=== PATIENT | male | born 1955 | race Two or more races ===

== ENCOUNTER 2019-02-15 21:07 | Inpatient (IN) | payer MEDICARE, OTHER ==
[~2019-02-15] VITALS: Ht 157.5 cm; Wt 59.4 kg
[2019-02-15] MEDS ORDERED: CEPHALEXIN500 MG ORAL (21:23)
[2019-02-15] MEDS ORDERED: ATORVASTATIN CA20 MG ORAL (21:23)
--- NOTE | 2019-02-15 21:35 | NUR ---
ED Nurse Note: Recieved pt from home, here with c/o bilat ankle / leg pain with swelling and painful rash for about 1 month, pt has radh to bilat ankle areas, appears to be like psoriasis or echyzema which pt has scratched to sores, redness and mild drainage noted, pt c/o pain at 10/10 and severe itching, pt denies any other discomforts, denies fevers, nausea or vomiting and no cp or sob, pt speaks mostly urdu, son is at bedside to assist with translation, will resume care as ordered and closely monitor.
[2019-02-15] MEDS ORDERED: Vancomycin 1 GM in NS 275 ML IV ONE (21:45)
[2019-02-15] MEDS ORDERED: Piperacillin/Tazobactam 3.375 GM in NS 110 ML IVPB ONE (21:45)
--- NOTE | 2019-02-15 22:02 | Emergency Room Report ---
History of Present Illness General Chief Complaint: Skin Rash/Abscess Source: Patient Present Illness HPI 64-year-old male history of hypertension, hyperlipidemia presents with bilateral foot pain, drainage, patient reports that over the past 10 days it has acutely worsened, with subjective fevers and chills, he was taking Keflex as an outpatient, no aggravating or relieving factors severity is severe, constant, patient has pain now at baseline. Patient presents for eval Allergies: Coded Allergies: No Known Allergies (Unverified , 02/15/19) Patient History Past Medical History: see triage record Reviewed Nursing Documentation: PMH: Agreed; PSxH: Agreed Nursing Documentation-PMH Past Medical History: No History, Except For Review of Systems All Other Systems: negative except mentioned in HPI Physical Exam Vital Signs Date Time Temp Pulse Resp B/P (MAP) Pulse Ox O2 Delivery O2 Flow Rate FiO2 02/15/19 21:16 98.2 85 22 159/79 (105) 98 Room Air Sp02 EP Interpretation: reviewed, normal General Appearance: well appearing, no apparent distress, alert Head: normocephalic, atraumatic Eyes: bilateral eye PERRL, bilateral eye EOMI ENT: uvula midline, moist mucus membranes Neck: supple, thyroid normal, supple/symm/no masses Respiratory: lungs clear, no respiratory distress, no retraction, no accessory muscle use Cardiovascular #1: normal peripheral pulses, regular rate, rhythm, no edema, no gallop, no murmur Gastrointestinal: non tender, soft, no guarding, no rebound Musculoskeletal: normal inspection Neurologic: alert, oriented x3 Psychiatric: mood/affect normal Skin: other - bilateral foot, erythema presents with breakdown of skin, 2+ PT DP, Medical Decision Making Diagnostic Impression: Primary Impression: Cellulitis of foot, left Additional Impression: Cellulitis of foot, right ER Course 64-year-old male presents with bilateral cellulitis, differential diagnosis includes autoimmune disease skin cellulitis, abscess, Broad-spectrum antibiotic started Labs show no acute abnormalities, patient will be admitted for wound care, IV antibiotics Patient admitted to Dr. Dozier Laboratory Tests Test 02/15/19 21:40 White Blood Count 8.1 K/UL (4.8-10.8) Red Blood Count 4.48 M/UL (4.70-6.10) L Hemoglobin 13.7 G/DL (14.2-18.0) L Hematocrit 40.3 % (42.0-52.0) L Mean Corpuscular Volume 90 FL (80-99) Mean Corpuscular Hemoglobin 30.6 PG (27.0-31.0) Mean Corpuscular Hemoglobin Concent 33.9 G/DL (32.0-36.0) Red Cell Distribution Width 13.0 % (11.6-14.8) Platelet Count 187 K/UL (150-450) Mean Platelet Volume 7.2 FL (6.5-10.1) Neutrophils (%) (Auto) 52.2 % (45.0-75.0) Lymphocytes (%) (Auto) 24.2 % (20.0-45.0) Monocytes (%) (Auto) 10.9 % (1.0-10.0) H Eosinophils (%) (Auto) 11.8 % (0.0-3.0) H Basophils (%) (Auto) 0.9 % (0.0-2.0) Erythrocyte Sedimentation Rate 10 MM/HR (0-20) Prothrombin Time 10.4 SEC (9.30-11.50) Prothrombin Time INR 1.0 (0.9-1.1) PTT 27 SEC (23-33) Sodium Level 144 MMOL/L (136-145) Potassium Level 4.1 MMOL/L (3.5-5.1) Chloride Level 108 MMOL/L (98-107) H Carbon Dioxide Level 28 MMOL/L (21-32) Anion Gap 8 mmol/L (5-15) Blood Urea Nitrogen 15 mg/dL (7-18) Creatinine 1.0 MG/DL (0.55-1.30) Estimate Glomerular Filtration Rate > 60 mL/min (>60) Glucose Level 156 MG/DL (74-106) H Lactic Acid Level 0.70 mmol/L (0.4-2.0) Calcium Level 8.8 MG/DL (8.5-10.1) Phosphorus Level 3.3 MG/DL (2.5-4.9) Magnesium Level 2.0 MG/DL (1.8-2.4) Total Bilirubin 0.3 MG/DL (0.2-1.0) Aspartate Amino Transferase (AST) 27 U/L (15-37) Alanine Aminotransferase (ALT) 54 U/L (12-78) Alkaline Phosphatase 127 U/L (46-116) H Total Creatine Kinase 148 U/L (26-308) Creatine Kinase MB 0.9 NG/ML (0.0-3.6) Creatine Kinase MB Relative Index 0.6 Troponin I 0.000 ng/mL (0.000-0.056) C-Reactive Protein, Quantitative < 0.4 mg/dL (0.00-0.90) Pro-B-Type Natriuretic Peptide 32 pg/mL (0-125) Total Protein 6.8 G/DL (6.4-8.2) Albumin 3.5 G/DL (3.4-5.0) Globulin 3.3 g/dL Albumin/Globulin Ratio 1.1 (1.0-2.7) Lipase 282 U/L (73-393) EKG Diagnostic Results EKG Time: 21:50 EP Interpretation: NSR, rate 76, QTc 432, no acute ST elevations, normal axis Rhythm Strip Diag. Results Rhythm Strip Time: 22:02 EP Interpretation: yes Rate: 84 Rhythm: NSR, no PVC's, no ectopy Other X-Ray Diagnostic Results Other X-Ray Diagnostic Results #1: X-Ray ordered: Left Foot XR Complete # of Views/Limited Vs Complete: 3 View Indication: Pain EP Interpretation: Yes Interpretation: no dislocation, no fractures Impression: No acute disease Electronically Signed by: Alvin Hardin MD Other X-Ray Diagnostic Results #2: X-Ray ordered: Right Foot XR complete # of Views/Limited Vs Complete: 3 View Indication: Pain EP Interpretation: Yes Interpretation: no dislocation, no fractures Impression: No acute disease Electronically Signed by: Alvin Hardin MD Last Vital Signs Date Time Temp Pulse Resp B/P (MAP) Pulse Ox O2 Delivery O2 Flow Rate FiO2 02/15/19 21:16 98.2 85 22 159/79 (105) 98 Room Air Disposition: ADMITTED INPATIENT Condition: Alvin Castillo MD Feb 15, 2019 22:02
[2019-02-15] MEDS ORDERED: fentaNYL 100 mcg/2 mL IV ONE (22:15)
[2019-02-15] MEDS ORDERED: Morphine Sulfate 4mg/ml Inj (IV USE ONLY) IVP ONE (22:15)
[2019-02-15 22:28] LABS: BASOPHILS % (AUTO) 0.9 % (0.0-2.0); EOSINOPHILS % (AUTO) 11.8 % (0.0-3.0); HEMATOCRIT 40.3 % (42.0-52.0); HEMOGLOBIN 13.7 G/DL (14.2-18.0); LYMPHOCYTES % (AUTO) 24.2 % (20.0-45.0); MEAN CORPUSCULAR VOLUME 90 FL (80-99); MONOCYTES % (AUTO) 10.9 % (1.0-10.0); NEUTROPHILS % (AUTO) 52.2 % (45.0-75.0); PLATELET COUNT 187 K/UL (150-450); RED BLOOD COUNT 4.48 M/UL (4.70-6.10); WHITE BLOOD COUNT 8.1 K/UL (4.8-10.8)
[2019-02-15 22:30] VITALS: BP 148/81
[2019-02-15 22:43] LABS: ANION GAP 8 mmol/L (5-15); BLOOD UREA NITROGEN 15 mg/dL (7-18); CALCIUM 8.8 MG/DL (8.5-10.1); CARBON DIOXIDE 28 MMOL/L (21-32); CHLORIDE 108 MMOL/L (98-107); POTASSIUM 4.1 MMOL/L (3.5-5.1); SODIUM 144 MMOL/L (136-145)
[2019-02-15 23:00] LABS: ALANINE AMINOTRANSFERASE 54 U/L (12-78); ALBUMIN 3.5 G/DL (3.4-5.0); ALBUMIN/GLOBULIN RATIO 1.1 (1.0-2.7); ALKALINE PHOSPHATASE 127 U/L (46-116); ASPARTATE AMINO TRANSFERASE 27 U/L (15-37); BILIRUBIN,TOTAL 0.3 MG/DL (0.2-1.0); CKMB 0.9 NG/ML (0.0-3.6); CREATINE KINASE 148 U/L (26-308); PHOSPHORUS 3.3 MG/DL (2.5-4.9)
--- NOTE | 2019-02-15 23:00 | NUR ---
ED Nurse Note: Pt resting quietly in bed, awake and alert, asking for pain meds, MD informed, will medicate pt as ordered and continue to closely montior. Pt given IV antibiotics, tolerating well, no s/s of adverse reaction noted, willprepare for hospital admission.
--- NOTE | 2019-02-16 00:10 | NUR ---
ED Nurse Note: Pt has room for admission, pt is in bed awake and alert, meds given for pain effective, pt states no pain, iv site intact and patent, belongings with pt and list completed, no home meds, pt son is aware of admisison, report called to PATO Lazcano, pt being taken to unit via gurney with er-tech, nad noted during pt transport.
[2019-02-16 00:12] LABS: APPEARANCE,URINE CLEAR; BILIRUBIN, URINE NEGATIVE (NEGATIVE); COLOR,URINE PALE YELLOW; GLUCOSE, URINE (UA) NEGATIVE (NEGATIVE); KETONES,URINE NEGATIVE (NEGATIVE); LEUKOCYTE ESTERASE ,URINE NEGATIVE (NEGATIVE); NITRITE,URINE NEGATIVE (NEGATIVE); PH,URINE 6 (4.5-8.0); PROTEIN,URINE NEGATIVE (NEGATIVE); UROBILINOGEN,URINE NORMAL MG/DL (0.0-1.0)
--- NOTE | 2019-02-16 02:00 | NUR ---
NURSES NOTES: Received patient from ER at apprx 0030. No outward s/s of distress. Breathing pattern is even and unlabored on room air. Patient is french speaking. Slot Floorperson line used to ask questions and receive appropriate answers. Patient is alert and oriented x4. VS within normal limits. Iv (R) AC is intact. No current order for fluids. Cellulitis/ redness of the R and L foot and swelling in the R foot noted. Patient denies pain at this time. Dr Dozier called for admission orders. Received dvt prophylaxis order, tylenol, and NPO order. Dr. Dozier stated he would call back in the morning for further admission orders. Patient oriented to room. Call light within reach. Bed at lowest level. Pt will continue to be monitored.
[2019-02-16 04:00] VITALS: BP 111/61
--- NOTE | 2019-02-16 05:12 | NUR ---
NURSES NOTE: Pt has remained stable through out NOC shift. VS wnl. No s/s of distress. Non labored breathing pattern noted.
[2019-02-16] MEDS ORDERED: Miralax 17gm pkt ORAL PRN (06:15)
--- NOTE | 2019-02-16 06:48 | NUR ---
NURSES NOTES: DR Dozier called and added to admission orders. Orders entered and processed. [facility] on 02/17.
--- NOTE | 2019-02-16 07:41 | NUR ---
HAND OFF: Report given to Bhupinder. Pt in stable condition.
--- NOTE | 2019-02-16 07:42 | NUR ---
NURSE NOTES: Received patient awake alert and oriented, sitting up comfortably in bed. IV at left antecubital, 20 gauge, saline lock. Bed at lowest level with 2 side rails up. Call light within reach. In no apparent distress at this time. Will continue to monitor.
[2019-02-16 08:00] VITALS: BP 127/77
[2019-02-16] MEDS: Piperacillin/Tazobactam 3.375 GM in NS 110 ML IVPB SCH ×2 (08:32→16:20)
[2019-02-16] MEDS: Heparin 5000 units/ml inj SUBQ SCH ×2 (09:19→20:40)
--- NOTE | 2019-02-16 11:18 | Diagnostic Imaging Report ---
Indication: Foot Pain Comparison: None Findings: 3 views of the right foot were obtained. No acute fractures, malalignment, erosions or periostitis are identified. Bones are osteopenic. Generalized soft tissue swelling noted nonspecific. Vascular calcifications are fairly extensive within the posterior tibial and dorsalis pedis arteries. Impression: No acute findings.
--- NOTE | 2019-02-16 11:18 | Diagnostic Imaging Report ---
Indication: Cough Comparison: None A single view chest radiograph was obtained. Findings: Cardiomediastinal appearance is within normal limits for age. The lungs are clear. Pulmonary vascularity is appropriate. The diaphragmatic contour is smooth and costophrenic angles are sharp. No pleural effusions are identified. The bones are unremarkable. Impression: No acute findings
--- NOTE | 2019-02-16 11:18 | Diagnostic Imaging Report ---
Indication: Foot pain Comparison: None Findings: 3 views of the left foot were obtained. No acute fractures, malalignment, erosions or periostitis are identified. Vascular calcification noted. Soft tissues are unremarkable. Impression: No acute findings
[2019-02-16 12:00] VITALS: BP 104/65
[2019-02-16] MEDS: Vancomycin 500mg/D5W 110ml IVPB SCH ×4 (12:44→23:43)
--- NOTE | 2019-02-16 15:42 | NUR ---
CASE MANAGEMENT: INITIAL REVIEW 64 YR OLD MALE FROM HOME CC: SKIN RASH SI: LEFT/ RIGHT FOOT CELLULITIS 98.2 85 22 159/79 98% ON RA IS: IVF NS BOLUS X1 IV VANCOMYCIN X1 IV ZOSYN X1 IV FENTANYL X1 IV MORPHINE SULFATE X1 XRAY L/R FOOT CXR CHEST : 3E MED SURG UNIT DCP: HOME WHEN MEDICALLY CLEARED PLAN: WOUND CULTURES PENDING
[2019-02-16 16:00] VITALS: BP 117/72
[2019-02-16] MEDS: NovoLOG Insulin Flexpen SUBQ SCH ×2 (17:39→20:42)
--- NOTE | 2019-02-16 19:25 | NUR ---
HAND-OFF: Report given to PATO La.
--- NOTE | 2019-02-16 22:30 | History and Physical Report ---
DATE OF ADMISSION: 02/15/2019 REASON FOR CONSULT: The patient is a 64-year-old man admitted with bilateral cellulitis of the legs. HISTORY OF PRESENT ILLNESS: The patient states he has had leg lesions for about 45 days. He has recently received Keflex from an outpatient clinic. No history of other chronic illnesses, although, he has history of hyperlipidemia. He states he is prediabetic. MEDICATIONS: Atorvastatin 20 mg daily and Keflex 500 mg 4 times a day. ALLERGIES: None known. HABITS: He is a nonsmoker. Former moderate alcohol, 4 to 5 beers a day, now occasional. SOCIAL HISTORY: He is retired. Worked apparently in the [employer] industry. SYSTEM REVIEW: HEAD, EYES, EARS, NOSE, AND THROAT: Vision and hearing is good. ENDOCRINE: No diabetes, but he has had some pre-diabetes. No thyroid disease. PULMONARY: No asthma or TB. CARDIAC: No angina or myocardial infarction. GASTROINTESTINAL: No GI bleeding, ulcers, or abdominal pain. GENITOURINARY: No dysuria or hematuria or kidney stones. NEUROLOGIC: No CVA, syncope, or seizures. PHYSICAL EXAMINATION: GENERAL: The patient is alert and well-developed man, in no acute distress. VITAL SIGNS: Temperature 98.1, pulse 73, respirations 21, and blood pressure 104/65. HEENT: Sclerae are nonicteric. Ocular motion is intact in all directions. Oral mucosa moist. NECK: No adenopathy or thyroid enlargement. LUNGS: Clear. HEART: Regular rhythm. No murmur. ABDOMEN: Soft without organomegaly or masses. EXTREMITIES: No edema. There is some moderate severe cellulitis in both legs with erythema and some denuded skin. There are some small papules in the upper legs and trunk. NEUROLOGIC: Alert and oriented. Cranial nerves are intact. PERTINENT LABORATORY DATA: White count 8.1 and hemoglobin 13.7. Electrolytes normal. Glucose 156. IMPRESSION: 1. Cellulitis of the legs. 2. Glucose intolerance. 3. History of hyperlipidemia. PLAN: We will start the patient on vancomycin and Zosyn for now. Observe. Follow up on sugars. Monitor his clinical course. Zeb Dozier M.D. DR: ADRIANNE JOB#: [id number] CC:
[2019-02-17] VITALS: BP 125/74
[2019-02-17] MEDS: Piperacillin/Tazobactam 3.375 GM in NS 110 ML IVPB SCH ×4 (00:47→23:49)
--- NOTE | 2019-02-17 01:12 | NUR ---
NURSES NOTE: Met patient in bed, alert and oriented, Czech speaker but pt is able to answer simple questions. No outward s/s of distress. Breathing is unlabored, even. VS within normal limits. Iv is patent, and running fluids/antibiotics according to eMAR. All due meds administered. Patient denies pain. Endorsed that pt has accucheck before meals only. Order updated in eMAR. Bed at lowest level. Call light within reach.
[2019-02-17] MEDS: NovoLOG Insulin Flexpen SUBQ SCH ×4 (06:30→21:40)
--- NOTE | 2019-02-17 07:42 | NUR ---
NURSE NOTES: Patient received in stable condition, resting in bed. Alert and oriented, responds appropriately. Breathing unlabored on room air, denies SOB. Reports pain in both legs but declines pain medication at this time. Urinal by the bedside. IV site no right arm patent and intact. Bed locked in lowest position, call light placed within reach. Will continue to monitor.
[2019-02-17 08:00] VITALS: BP 139/75
--- NOTE | 2019-02-17 08:07 | NUR ---
HAND OFF: Gave report to PATO Peterson. Patient left in stable condition. [facility] 02/17 endorsed.
[2019-02-17] MEDS: Heparin 5000 units/ml inj SUBQ SCH ×2 (08:38→21:35)
[2019-02-17 12:00] VITALS: BP 141/73
--- NOTE | 2019-02-17 12:09 | NUR ---
CASE MANAGEMENT: INITIAL REVIEW 02/17/19 SI: LEFT/ RIGHT FOOT CELLULITIS 97.9 76 18 139/75 99% ON RA IS: IV VANCOMYCIN Q12HR IV ZOSYN Q8HR HEPARIN SQ Q12HR : [facility]G UN[facility] DCP: HOME WHEN MEDICALLY CLEARED PLAN: 02/15 WOUND CULTURES PENDING - NO GROWTH Addendum: 02/17/19 at 1214 by ROSALBA DOMINGUEZ LVN CASE MANAGEMENT: REVIEW 02/17/19 SI: LEFT/ RIGHT FOOT CELLULITIS 97.9 76 18 139/75 99% ON RA IS: IV VANCOMYCIN Q12HR IV ZOSYN Q8HR HEPARIN SQ Q12HR : 3E MED SURG UNIT DCP: HOME WHEN MEDICALLY CLEARED PLAN: 02/15 WOUND CULTURES PENDING - NO GROWTH
[2019-02-17] MEDS ORDERED: Vancomycin 750mg/NS 275ml IVPB SCH ×2 (13:00)
--- NOTE | 2019-02-17 15:21 | Cardiology Report ---
APPROVED REPORT EKG Measurement Heart [id number] Normal sinus rhythm Normal ECG
[2019-02-17 16:00] VITALS: BP 133/70
--- NOTE | 2019-02-17 19:42 | NUR ---
HAND-OFF: Report given to Светлана WHYTE.
--- NOTE | 2019-02-17 19:43 | NUR ---
NURSE NOTES: Received report & pt from PATO Smith. Pt lying in bed, a&ox4, Greek speaking only, in room air. No s/s of acute distress & no c/o pain at this time. B/L leg cellulitis noted. IV site intact. Bed in lowest position, call light within reach. Will continue to monitor.
--- NOTE | 2019-02-17 19:46 | General Progress Note ---
Assessment/Plan Problem List: (1) Diabetes ICD Codes: E11.9 - Type 2 diabetes mellitus without complications SNOMED: 15165122 (2) Cellulitis of foot, right ICD Codes: L03.115 - Cellulitis of right lower limb SNOMED: 515789645 (3) Cellulitis of foot, left ICD Codes: L03.116 - Cellulitis of left lower limb SNOMED: 063972364 Assessment/Plan: continue vanco and zosyn Subjective Constitutional: Reports: no symptoms HEENT: Reports: no symptoms Cardiovascular: Reports: no symptoms Respiratory: Reports: no symptoms Gastrointestinal/Abdominal: Reports: no symptoms Genitourinary: Reports: no symptoms Neurologic/Psychiatric: Reports: no symptoms Endocrine: Reports: no symptoms Allergies: Coded Allergies: No Known Allergies (Unverified , 02/15/19) Subjective leg cellulitis and pain Objective Last 24 Hour Vital Signs Date Time Temp Pulse Resp B/P (MAP) Pulse Ox O2 Delivery O2 Flow Rate FiO2 02/17/19 16:00 97.8 70 20 133/70 (91) 95 02/17/19 12:00 98.1 73 18 141/73 (95) 98 02/17/19 09:00 Room Air 02/17/19 08:00 97.9 76 18 139/75 (96) 99 02/17/19 00:00 98.1 67 19 125/74 (91) 98 02/16/19 21:00 Room Air Intake and Output 02/16/19 02/17/19 19:00 07:00 Intake Total 480 ml Output Total 450 ml Balance 30 ml Intake Oral 480 ml Output Urine Total 450 ml # Voids 3 # Bowel Movements 1 Laboratory Tests 02/17/19 04:50: Hemoglobin A1c 6.5H 02/17/19 10:15: Vancomycin Level Trough 7.4 Height (Feet): 5 Height (Inches): 2.00 Weight (Pounds): 131 General Appearance: no apparent distress, alert EENT: normal ENT inspection Neck: non-tender Cardiovascular: normal rate Respiratory/Chest: lungs clear Abdomen: no organomegaly Edema: no edema noted Arm (L), no edema noted Arm (R), no edema noted Leg (L), no edema noted Leg (R), no edema noted Pedal (L), no edema noted Pedal (R), no edema noted Generalized Skin: other - cellulitis both legs mod JacobyZeb MD Feb 17, 2019 19:46
[2019-02-17 20:00] VITALS: BP 116/74
--- NOTE | 2019-02-17 22:05 | NUR ---
NURSE NOTES: MRSA swab done & sent down to lab.
[2019-02-17 23:55] VITALS: BP 118/69
[2019-02-18 04:00] VITALS: BP 102/60
[2019-02-18] MEDS ORDERED: Vancomycin 750mg/NS 275ml IVPB SCH ×2 (04:00)
[2019-02-18] MEDS: NovoLOG Insulin Flexpen SUBQ SCH ×2 (06:29→12:17)
--- NOTE | 2019-02-18 07:23 | NUR ---
HAND-OFF: Report given to PATO Weinstein. Pt in stable condition.
--- NOTE | 2019-02-18 07:39 | NUR ---
NURSE NOTES: AWAKE/ALERT.PAIN SCALE 8/10. BLE RED /SWOLLEN. KEPT ELEVATED ON PILLOWS. IN NO ACUTE DISTRESS.
[2019-02-18] MEDS: Piperacillin/Tazobactam 3.375 GM in NS 110 ML IVPB SCH ×3 (07:57→23:57)
[2019-02-18 08:00] VITALS: BP 118/77
[2019-02-18 08:03] LABS: BASOPHILS % (AUTO) 0.8 % (0.0-2.0); EOSINOPHILS % (AUTO) 16.5 % (0.0-3.0); HEMOGLOBIN 14.1 G/DL (14.2-18.0); LYMPHOCYTES % (AUTO) 32.3 % (20.0-45.0); MEAN CORPUSCULAR VOLUME 91 FL (80-99); MONOCYTES % (AUTO) 9.1 % (1.0-10.0); NEUTROPHILS % (AUTO) 41.2 % (45.0-75.0); PLATELET COUNT 191 K/UL (150-450); RED BLOOD COUNT 4.59 M/UL (4.70-6.10)
[2019-02-18 08:05] LABS: ANION GAP 10 mmol/L (5-15); BLOOD UREA NITROGEN 13 mg/dL (7-18); CALCIUM 8.8 MG/DL (8.5-10.1); CARBON DIOXIDE 25 MMOL/L (21-32); CHLORIDE 107 MMOL/L (98-107); CREATININE 1.2 MG/DL (0.55-1.30); POTASSIUM 3.8 MMOL/L (3.5-5.1); SODIUM 142 MMOL/L (136-145)
[2019-02-18] MEDS: Heparin 5000 units/ml inj SUBQ SCH ×2 (08:40→20:32)
[2019-02-18 12:00] VITALS: BP 125/76
--- NOTE | 2019-02-18 13:31 | General Progress Note ---
Assessment/Plan Problem List: (1) Diabetes ICD Codes: E11.9 - Type 2 diabetes mellitus without complications SNOMED: 99834591 (2) Cellulitis of foot, right ICD Codes: L03.115 - Cellulitis of right lower limb SNOMED: 562356060 (3) Cellulitis of foot, left ICD Codes: L03.116 - Cellulitis of left lower limb SNOMED: 784969433 Assessment/Plan: continue vanco and zosyn Subjective Constitutional: Reports: no symptoms HEENT: Reports: no symptoms Cardiovascular: Reports: no symptoms Respiratory: Reports: no symptoms Gastrointestinal/Abdominal: Reports: no symptoms Genitourinary: Reports: no symptoms Neurologic/Psychiatric: Reports: no symptoms Endocrine: Reports: no symptoms Hematologic/Lymphatic: Reports: no symptoms Allergies: Coded Allergies: No Known Allergies (Unverified , 02/15/19) Subjective leg cellulitis and pain Objective Last 24 Hour Vital Signs Date Time Temp Pulse Resp B/P (MAP) Pulse Ox O2 Delivery O2 Flow Rate FiO2 02/18/19 12:00 98.9 76 20 125/76 (92) 98 02/18/19 11:09 97.8 02/18/19 08:11 Room Air 02/18/19 08:00 97.8 78 20 118/77 (91) 98 02/18/19 04:00 97.5 64 16 102/60 (74) 98 02/17/19 23:55 97.5 64 18 118/69 (85) 99 02/17/19 21:00 Room Air 02/17/19 20:00 98.1 78 20 116/74 (88) 95 02/17/19 16:00 97.8 70 20 133/70 (91) 95 Intake and Output 02/17/19 02/18/19 19:00 07:00 Intake Total 360 ml Balance 360 ml Intake Oral 360 ml # Voids 5 Laboratory Tests 02/18/19 07:25: White Blood Count 7.0, Red Blood Count 4.59L, Hemoglobin 14.1L, Hematocrit 42.0 , Mean Corpuscular Volume 91, Mean Corpuscular Hemoglobin 30.7, Mean Corpuscular Hemoglobin Concent 33.6, Red Cell Distribution Width 14.0, Platelet Count 191, Mean Platelet Volume 7.2, Neutrophils (%) (Auto) 41.2L, Lymphocytes ( %) (Auto) 32.3, Monocytes (%) (Auto) 9.1, Eosinophils (%) (Auto) 16.5H, Basophils (%) (Auto) 0.8, Sodium Level 142, Potassium Level 3.8, Chloride Level 107, Carbon Dioxide Level 25, Anion Gap 10, Blood Urea Nitrogen 13, Creatinine 1.2, Estimat Glomerular Filtration Rate > 60, Glucose Level 116H, Calcium Level 8.8 Height (Feet): 5 Height (Inches): 2.00 Weight (Pounds): 131 General Appearance: WD/WN, no apparent distress EENT: normal ENT inspection Neck: normal alignment Cardiovascular: normal rate Respiratory/Chest: lungs clear Abdomen: non tender, soft Edema: no edema noted Arm (L), no edema noted Arm (R), no edema noted Leg (L), no edema noted Leg (R), no edema noted Pedal (L), no edema noted Pedal (R), no edema noted Generalized Skin: other - still mod cellulitis both legs Zeb Dozier MD Feb 18, 2019 13:31
[2019-02-18] MEDS: Vancomycin 750mg/NS 275ml IVPB SCH ×2 (15:12)
[2019-02-18 16:00] VITALS: BP 108/62
--- NOTE | 2019-02-18 19:01 | NUR ---
NURSE NOTES: resting. in no apparent acute changes.
--- NOTE | 2019-02-18 19:19 | NUR ---
HAND-OFF: Report given to Ginna PRECIADO RN.
[2019-02-18 20:00] VITALS: BP 118/76
--- NOTE | 2019-02-18 21:35 | NUR ---
NURSE NOTE: Pt is A/Ox4 with stable VS. Orders reviewed and physical assessment completed. Call velez is within reach, will continue to monitor.
[2019-02-18 23:59] VITALS: BP 115/77
[2019-02-19] MEDS: Vancomycin 750mg/NS 275ml IVPB SCH ×2 (04:29)
[2019-02-19 04:35] VITALS: BP 115/64
[2019-02-19] MEDS ORDERED: Vancomycin 1gm/D5W 275ml IVPB SCH ×2 (05:30)
[2019-02-19] MEDS: Piperacillin/Tazobactam 3.375 GM in NS 110 ML IVPB SCH ×3 (07:28→23:46)
--- NOTE | 2019-02-19 07:30 | NUR ---
NURSE NOTES: AWAKE/ALERT. PAIN SCALE 5/10 .BLE RED AND SWOLLEN.ELEVATED ON PILLOW. GIVEN TYLENOL 650MG PO. WILL MONITOR PT.
[2019-02-19 08:01] VITALS: BP 126/75
[2019-02-19] MEDS ORDERED: NS 275ml ONE (08:35)
[2019-02-19] MEDS ORDERED: Tubing IV Secondary IV ONE (08:35)
[2019-02-19] MEDS: Heparin 5000 units/ml inj SUBQ SCH ×2 (08:41→20:46)
--- NOTE | 2019-02-19 10:09 | General Progress Note ---
Assessment/Plan Problem List: (1) Diabetes ICD Codes: E11.9 - Type 2 diabetes mellitus without complications SNOMED: 39068540 (2) Cellulitis of foot, right ICD Codes: L03.115 - Cellulitis of right lower limb SNOMED: 318095374 (3) Cellulitis of foot, left ICD Codes: L03.116 - Cellulitis of left lower limb SNOMED: 097101708 Assessment/Plan: continue vanco and zosyn Subjective Constitutional: Reports: no symptoms HEENT: Reports: no symptoms Cardiovascular: Reports: no symptoms Respiratory: Reports: no symptoms Gastrointestinal/Abdominal: Reports: no symptoms Genitourinary: Reports: no symptoms Neurologic/Psychiatric: Reports: no symptoms Endocrine: Reports: no symptoms Allergies: Coded Allergies: No Known Allergies (Unverified , 02/15/19) Subjective leg cellulitis and pain Objective Last 24 Hour Vital Signs Date Time Temp Pulse Resp B/P (MAP) Pulse Ox O2 Delivery O2 Flow Rate FiO2 02/19/19 08:13 Room Air 02/19/19 08:02 97.9 02/19/19 08:01 97.9 75 20 126/75 (92) 98 02/19/19 04:35 98.0 66 18 115/64 (81) 97 02/18/19 23:59 98.0 70 17 115/77 (90) 97 02/18/19 21:00 Room Air 02/18/19 20:00 98.5 72 16 118/76 (90) 97 02/18/19 16:00 98.3 68 20 108/62 (77) 97 02/18/19 12:00 98.9 76 20 125/76 (92) 98 Intake and Output 02/18/19 02/19/19 19:00 07:00 Intake Total 1535 ml Output Total 750 ml 1050 ml Balance 785 ml -1050 ml Intake Oral 1150 ml IV Total 385 ml Output Urine Total 750 ml 1050 ml # Voids 3 1 Laboratory Tests 02/19/19 03:10: Vancomycin Level Trough 8.9 Height (Feet): 5 Height (Inches): 2.00 Weight (Pounds): 131 General Appearance: no apparent distress Neck: normal alignment Cardiovascular: normal rate Respiratory/Chest: lungs clear Abdomen: non tender, soft Edema: no edema noted Arm (L), no edema noted Arm (R), no edema noted Leg (L), no edema noted Leg (R), no edema noted Pedal (L), no edema noted Pedal (R), no edema noted Generalized Objective still mod cellulitis continue jason and Zeb Gomez MD Feb 19, 2019 10:09
[2019-02-19 12:00] VITALS: BP 128/80
[2019-02-19] MEDS: Vancomycin 1gm/D5W 275ml IVPB SCH ×2 (15:20)
[2019-02-19 16:00] VITALS: BP 130/75
--- NOTE | 2019-02-19 19:10 | NUR ---
NURSE NOTES: CONDITION STABLE. IN NO ACUTE DISTRESS.
--- NOTE | 2019-02-19 19:13 | NUR ---
HAND-OFF: Report given to Ginna PRECIADO RN.
--- NOTE | 2019-02-19 19:42 | NUR ---
NURSE NOTE: Pt is A/Ox4 with stable VS. Pt ambulating in room. Orders reviewed and physical assessment completed. Call velez is within reach, will continue to monitor.
[2019-02-19 20:00] VITALS: BP 126/69
[2019-02-19 23:50] VITALS: BP 117/68
[2019-02-20] MEDS: Vancomycin 1gm/D5W 275ml IVPB SCH ×2 (04:04)
[2019-02-20 04:15] VITALS: BP 131/73
--- NOTE | 2019-02-20 07:00 | NUR ---
HAND-OFF: Report given to [Manpreet].
--- NOTE | 2019-02-20 08:05 | NUR ---
NURSE NOTES: NURSE NOTES: VS stable, denies pain, no SOB noted, Junito LE redness, edema +1, elevated on pillows, pts on IV Abx. call light within reach. bed alarm on . bed in low position, call light within reach. fall precaution maintained. will continue to monitor.
[2019-02-20 08:30] VITALS: BP 128/77
[2019-02-20 08:59] LABS: ANION GAP 7 mmol/L (5-15); BLOOD UREA NITROGEN 11 mg/dL (7-18); CARBON DIOXIDE 28 MMOL/L (21-32); CHLORIDE 106 MMOL/L (98-107); CREATININE 1.1 MG/DL (0.55-1.30); POTASSIUM 3.9 MMOL/L (3.5-5.1); SODIUM 141 MMOL/L (136-145)
[2019-02-20] MEDS: Piperacillin/Tazobactam 3.375 GM in NS 110 ML IVPB SCH (09:16)
[2019-02-20] MEDS: Heparin 5000 units/ml inj SUBQ SCH (09:20)
[2019-02-20 09:23] VITALS: BP 127/77
[2019-02-20 11:37] VITALS: BP 138/75
--- NOTE | 2019-02-20 11:47 | NUR ---
CASE MANAGEMENT: REVIEW 02/20/19 SI: LEFT/ RIGHT FOOT CELLULITIS 97.3 83 18 128/77 98% ON RA BG 146 IS: IV VANCOMYCIN Q12HR IV ZOSYN Q8HR HEPARIN SQ Q12HR : 3E MED SURG UNIT DCP: HOME WHEN MEDICALLY CLEARED
[2019-02-20] MEDS ORDERED: DOXYCYCLINE MO100 M2 PO (13:57)
[2019-02-20] MEDS ORDERED: KENALOG1 APPLIC TOPIC (13:57)
--- NOTE | 2019-02-20 14:17 | NUR ---
NURSE NOTES: Received order to DC pt home. VS stable. pt stable. Denies pain, Junito LE no redness, no swelling. belongings with pt, no home meds, DC instruction given, verbalize understanding, IV removed. abx and oint prescription given to pt, need to make appt next week to follow up with MD, verbalize understanding, family notified, waiting for his daughter in law, to pick him up.
--- NOTE | 2019-02-21 00:45 | Discharge Summary ---
DATE OF ADMISSION: 02/15/2019 DATE OF DISCHARGE: 02/20/2019 PERTINENT HISTORY: See the dictated H and P. the patient came to the hospital with severe cellulitis of both legs. Failed outpatient Keflex. There is a history of borderline diabetes and hyperlipidemia. PERTINENT PHYSICAL FINDINGS: HEENT: Unremarkable. LUNGS: Clear. HEART: Regular rhythm. ABDOMEN: Soft. EXTREMITIES: No edema. There is [id number] cellulitis in both legs. COURSE IN THE HOSPITAL: The patient was placed on vancomycin and Zosyn. He remained afebrile. Wound culture from the skin showed coag-negative staph. His skin had a slow gradual improvement and on the day of discharge, his exam was negative, but he has dry scaly skin on his legs, but no more redness and erythema and he was discharged home in stable condition. FINAL DIAGNOSES: 1. Cellulitis of the legs with failure of outpatient treatment. 2. Pre-diabetes. 3. Hyperlipidemia. DISCHARGE DISPOSITION: Home on doxycycline 100 mg b.i.d. and atorvastatin 20 mg daily and triamcinolone cream b.i.d. Follow up in the office of Dr. Dozier or his prior provider. Zeb Dozier M.D. DR: ADRIANNE JOB#: [id number] CC:
== END 2019-02-20 15:04 | disposition home or self-care (01) | DRG 603 ==
LOC: EMR 21:40 → 3E 22:16 → EDBEDREQ 23:21
DX: L03.116 Cellulitis of left lower limb (principal); L03.115 Cellulitis of right lower limb; E78.5 Hyperlipidemia, unspecified; R73.03 Prediabetes
CPT/HCPCS: 36415; 71045; 80048; 80053; 80202; 81003; 82550; 82553; 82962; 83036; 83605; 83690; 83735; 83880; 84100; 84484; 85025; 85610; 85651; 85730; 86140; 87040; 87070; 87081; 87205; 93005; 96365; 96368; 96375; 99285; J1815; J7030